=== PATIENT | male | born 1960 | race American Indian/Alaskan Native ===

== ENCOUNTER → 2020-03-23 07:26 | Outpatient (CLI) | payer BC, SELFPAY ==
--- NOTE | ~2020-03-23 | US_ITS ---
EXAMINATION: US abdomen limited DATE: 03/23/2020 08:03 INDICATION: Right upper quadrant abdominal pain. TECHNIQUE: Multiple grayscale and Doppler ultrasound images of the abdomen were obtained. COMPARISON: None FINDINGS: Abdominal aorta is normal in caliber. The visualized portions of the head and body of the p ancreas are normal. There is diffuse hepatic steatosis with focal sparing in the gallbladder fossa. T here is normal flow in main portal vein. The gallbladder is normal in size. No gallstones or gallblad linda wall thickening. There was no sonographic Conway sign. The common duct is normal and measures 3 m m. Right kidney is normal. IMPRESSION: 1. Diffuse hepatic steatosis. Reviewed, dictated and finalized at location [facility]. [facility] THEATER MANAGER
== END ==
PROVIDERS: PCP Family Medicine; Visit Provider Family Medicine
DX: R10.11 Right upper quadrant pain (principal); K76.0 Fatty (change of) liver, not elsewhere classified
CPT/HCPCS: 76705

== ENCOUNTER 2020-06-18 13:16 | Outpatient (CLI) | payer OTHER, SELFPAY | END 2020-06-18 13:17 | disposition home or self-care (01) | LOC: ANHCOVIDVC 13:16 | PROVIDERS: PCP Family Medicine | DX: Z23 Encounter for immunization (principal) | CPT/HCPCS: 0001A; 91300 ==

== ENCOUNTER 2020-07-09 13:11 | Outpatient (CLI) | payer OTHER, SELFPAY | END 2020-07-09 13:12 | disposition home or self-care (01) | LOC: ANHCOVIDVC 13:11 | PROVIDERS: PCP Family Medicine | DX: Z23 Encounter for immunization (principal) | CPT/HCPCS: 0002A; 91300 ==

== ENCOUNTER 2023-01-09 06:58 | Outpatient (CLI) | payer OTHER, SELFPAY ==
[2023-01-09 07:22] LABS: Alanine Aminotransferase 28 U/L (6-50); Albumin Level 4.5 g/dL (3.5-5.1); Alkaline Phosphatase 81 U/L (38-126); Anion Gap 5 mmol/L (8-16); Aspartate Amino Transferase 34 U/L (17-59); Bilirubin,Total 0.4 mg/dL (0.2-1.3); Blood Urea Nitrogen 14 mg/dL (9-20); Calcium 9.1 mg/dL (8.4-10.2); Carbon Dioxide 31 mmol/L (22-30); Chloride 101 mmol/L (98-107); Cholesterol 123 mg/dL (0-200); Estimated Glomerular Filt Rate > 60; Glucose 125 mg/dL (65-110); HDL Direct 40 mg/dL; Potassium 4.3 mmol/L (3.4-5.0); Sodium 137 mmol/L (137-145); Triglycerides 58 mg/dL (<150)
[2023-01-09 07:33] LABS: Hemoglobin A1C 6.2 % (<5.7); LDL Cholesterol Direct 68 mg/dL
== END 2023-01-09 06:59 | disposition home or self-care (01) ==
PROVIDERS: PCP Family Medicine; Visit Provider Family Medicine
DX: E11.9 Type 2 diabetes mellitus without complications (principal); E78.2 Mixed hyperlipidemia; I10 Essential (primary) hypertension
CPT/HCPCS: 36415; 80053; 80061; 83036

== ENCOUNTER 2023-04-19 13:54 | Outpatient (CLI) | payer OTHER, SELFPAY ==
--- NOTE | ~2023-04-19 | XR_ITS ---
Clinical Indication: Shortness of breath PA and lateral views of the chest: Comparison: None Findings: The lungs are clear, without evidence of focal consolidation or pleural effusion. Cardiome diastinal silhouette is within normal limits. Bones and soft tissues are unremarkable. Impression: Normal chest. Reviewed, dictated and finalized at [facility]. [facility] Impression: Normal chest.
== END 2023-04-19 13:55 | disposition home or self-care (01) ==
PROVIDERS: PCP Family Medicine; Visit Provider Physician Assistant
DX: R06.02 Shortness of breath (principal)
CPT/HCPCS: 71046

== ENCOUNTER 2023-10-23 07:36 | Outpatient (CLI) | payer OTHER, SELFPAY ==
[2023-10-23 08:20] LABS: Alanine Aminotransferase 49 U/L (6-50); Albumin Level 4.7 g/dL (3.5-5.1); Alkaline Phosphatase 78 U/L (38-126); Anion Gap 11 mmol/L (4-12); Aspartate Amino Transferase 44 U/L (17-59); Bilirubin,Total 0.5 mg/dL (0.2-1.3); Blood Urea Nitrogen 13 mg/dL (9-20); Calcium 9.1 mg/dL (8.4-10.2); Carbon Dioxide 30 mmol/L (22-30); Chloride 98 mmol/L (98-107); Cholesterol 129 mg/dL (0-200); Estimated Glomerular Filt Rate > 60; Glucose 123 mg/dL (65-110); HDL Direct 39 mg/dL; Sodium 139 mmol/L (137-145); Triglycerides 105 mg/dL (<150)
[2023-10-23 08:31] LABS: LDL Cholesterol Direct 79 mg/dL
[2023-10-23 08:49] LABS: Prostate Specific Antigen 0.7 ng/mL (< OR = 4.0)
[2023-10-23 09:05] LABS: Creatinine Urine 165.9 mg/dL
[2023-10-23 09:10] LABS: MALB Creatinine Ratio 11.3 mg/g (0-30); Microalbumin Urine Random 18.8 mg/L (0-16.7)
[2023-10-23 10:37] LABS: Hemoglobin A1C 7.1 % (<5.7)
== END 2023-10-23 07:37 | disposition home or self-care (01) ==
LOC: ANHLAB 07:37
PROVIDERS: PCP Family Medicine; Visit Provider Student in an Organized Health Care Education/Training Program
DX: E11.9 Type 2 diabetes mellitus without complications (principal); E78.2 Mixed hyperlipidemia; I10 Essential (primary) hypertension; Z12.5 Encounter for screening for malignant neoplasm of prostate
CPT/HCPCS: 36415; 80053; 80061; 82043; 83036; 84153; G0103

== ENCOUNTER 2024-05-13 06:43 | Outpatient (CLI) | payer OTHER, SELFPAY ==
--- OUTSIDE RECORDS SUMMARY | 2024-05-13 06:47 | XMS_ITS | Clinical Summary ---
Author Organization [facility] Address [address] [place] [address] Care Team Providers Care Plate Molder Name Role Phone Natalia Salazar MD Primary Care Provider + Source Comments [facility],non-owned Affiliates and Associated Physician Practices is amultiple site organization consisting of ambulatory clinics and hospital sitesin [place], [place], [place] and [place]. This disclosure is being madepursuant to the Care Everywhere program and may not contain all information available regarding this patient. Last updated 17.[facility] [employer] Social History Tobacco Use Types Packs/Day Years Used Date Smoking Tobacco: Never Assessed Sex and Gender Information Value Date Recorded Sex Assigned at Not on file Gender Identity Not on file Sexual Orientation Not on file Plan of Treatment Health Maintenance Due Date Last Done Comments COLOGUARD (AGES 45-75) - COL ON CA SCREENING 1961 COLON MONITORING 1961 COLONOSCOPY - COLON CA SCREENING 1961 CT COLONOGRAPHY - COLON CA SCREENING 1961 Colorectal Cancer Screening 1961 FIT - COLON CA SCREENING 1961 FLEX SIG - COLON CA SCREENING 1961 LIPID TESTING 1961 HIV SCREENING 02/08/1976 HEPATITIS C SCREENING 02/03/1979 DTAP/TDAP/TD VACCINES (1 - Tdap) 02/08/1980 PNEUMOCOCCAL VACCINE 50+ (1 of 1 - PCV) 2011 ZOSTER VACCINE (1 of 2) 2011 COVID-19 VACCINE ( - 2023-2 5 season) 2023 INFLUENZA VACCINE (#1) 2023 DEPRESSION SCREENING 04/05/2024 Respiratory Syncytial Virus (RSV) Vaccine Pt: or over 60 yrs (1 - 1-dose 75+ series) 02/08/2036 HEPATITIS B VACCINE Aged Out No longe r eligible based on patient's age to complete this topic HIB VACCINE Aged Out No longer eligi ble based on patient's age to complete this topic HPV VACCINE Aged Out No longer eligi ble based on patient's age to complete this topic MENINGOCOCCAL (Group B) VACCINE Aged Out No longer eligible based on patient's age to complete this topic MENINGOCOCCAL VACCINE Aged Out No nisha godfrey eligible based on patient's age to complete this topic PNEUMOCOCCAL VACCINE Aged Out No long er eligible based on patient's age to complete this topic Care Teams Plate Molder Relationship Specialty Start Date End Date Natalia Salazar MD [address] [place] [address] PCP - General 07/07/18
--- OUTSIDE RECORDS SUMMARY | 2024-05-13 06:47 | XMS_ITS | Patient Health Summary ---
Author Organization [facility] Address [address] [place] [address] Care Team Providers Care Tool Repairer Name Role Phone Natalia Salazar MD Primary Care Provider + Note from [facility],non-owned Affiliates and Associated Physician Practices is amultiple site organization consisting of ambulatory clinics and hospital sitesin [place], [place], [place] and [place]. This disclosure is being madepursuant to the Care Everywhere program and may not contain all information available regarding this patient. Last updated 17.[facility] Social History Tobacco Use Types Packs/Day Years Used Date Smoking Tobacco: Never Assessed Sex and Gender Information Value Date Recorded Sex Assigned at Not on file Gender Identity Not on file Sexual Orientation Not on file Procedures * DERMATOPATHOLOGY(Performed 01/02/2022) Results * DERMATOPATHOLOGY (01/02/2022 12:00 AM CDT) Case Report Dermatopathology Report Case: [id number] Authorizing Provider: Luis Ppo MD Collected: 01/02/2022 12:00 AM Ordering Location: [facility] DermPath Lab Received: 01/05/2022 04:53 PM Pathologist: Natali Deleon MD Specimen: Skin, left shoulder 12:47 PM CDT DERMATOPATHOLOGY LABORATORY Final Diagnosis Specimen A. SKIN, left shoulder: HEMANGIOMA (D18.01) 12:47 PM CDT DERMATOPATHOLOGY LABORATORY Clinical History PG vs. Angioma vs. MM. Path# [id number] 12:47 PM CDT DERMATOPATHOLOGY LABORATORY Gross Description Specimen A: Received is one formalin filled container labeled with the patient's name and designated left shoulder. The specimen consists of a shave biopsy measuring [id number]. Jar 0. 12:47 PM CDT DERMATOPATHOLOGY LABORATORY Microscopic Description Specimen A. SKIN, left shoulder: In the dermis, there are dilated vascular spaces surrounded by widely spaced endothelial cells. 12:47 PM CDT DERMATOPATHOLOGY LABORATORY Disclaimer An external and internal positive and negative controls are appropriate for the histochemical, immunohistochemical and immunofluorescence stain(s) in this case (if any), except where stated explicitly. The performance characteristics of the stain(s) cited in this report were developed and its performance characteristic determined by the Dermatopathology Laboratory at [facility], directed by Dr. Florian Lambert. These tests need not be, and therefore are not, approved by the [place] Food and Drug Administration. The tests are used for clinical purposes. Billing Codes Specimen Charges Stain Charges 10473 1 12:47 PM CDT DERMATOPATHOLOGY LABORATORY Embedded Images 12:47 PM CDT DERMATOPATHOLOGY LABORATORY Pathology/Cytolog y TISSUE SPECIMEN FROM SKIN / Unknown 01/02/2022 01/05/2022 4:53 PM CDT Luis Pop MD LAB - PATHOLOGY/CYTO LOGY ORDERABLES DERMATOPATHOLOGY LABORATORY [facility] - Department of Dermatology [facility] [address] [place] [address], [address] [phone] Care Teams Tool Repairer Relationship Specialty Start Date End Date Natalia Salazar MD [address] [place] [address] PCP - General 07/07/18
--- OUTSIDE RECORDS SUMMARY | 2024-05-13 06:47 | XMS_ITS | Referral Summary ---
Author Organization [facility] Address [address] [place] [address] Care Team Providers Care Avionics Safety Inspector Name Role Phone Natalia Salazar MD Primary Care Provider + Source Comments [facility],non-[facility] Affiliates and Associated Physician Practices is amultiple site organization consisting of ambulatory clinics and hospital sitesin [place], [place], [place] and [place]. This disclosure is being madepursuant to the Care Everywhere program and may not contain all information available regarding this patient. Last updated 17.[facility] Social History Tobacco Use Types Packs/Day Years Used Date Smoking Tobacco: Never Assessed Sex and Gender Information Value Date Recorded Sex Assigned at Not on file Gender Identity Not on file Sexual Orientation Not on file Plan of Treatment Not on file Care Teams Avionics Safety Inspector Relationship Specialty Start Date End Date Natalia Salazar MD [address] [place] [address] PCP - General 07/07/18
--- OUTSIDE RECORDS SUMMARY | 2024-05-13 06:47 | XMS_ITS | Encounter Summary ---
Author Organization [facility] Address [address] [place] [address] Care Team Providers Care Rental Sales Representative Name Role Phone Natalia Salazar MD Primary Care Provider + Encounter Details Date Type Department Care Team (Late st Contact Info) Description 01/05/2022 Lab Requisition [facility] DermPath Lab [address] [place] [id number] Luis Pop MD [address] [place] [address] Social History Tobacco Use Types Packs/Day Years Used Date Smoking Tobacco: Never Assessed Sex and Gender Information Value Date Recorded Sex Assigned at Not on file Gender Identity Not on file Sexual Orientation Not on file documented as of this encounter Plan of Treatment Not on file documented as of this encounter Procedures Procedure Name Priority Date/Time Associated Diagnosis Comments DERMATOPATHOLOGY Routine 01/02/2022 12:0 0 AM CDT documented in this encounter Results * DERMATOPATHOLOGY (01/02/2022 12:00 AM CDT) Case Report Dermatopathology Report Case: [id number] Authorizing Provider: Luis Pop MD Collected: 01/02/2022 12:00 AM Ordering Location: [facility] DermPath Lab Received: 01/05/2022 04:53 PM Pathologist: Natali Deleon MD Specimen: Skin, left shoulder 2 12:47 PM CDT DERMATOPATHOLOGY LABORATORY Final Diagnosis Specimen A. SKIN, left shoulder: HEMANGIOMA (D18.01) 2 12:47 PM CDT DERMATOPATHOLOGY LABORATORY Clinical History PG vs. Angioma vs. MM. Path# [id number] 12:47 PM CDT DERMATOPATHOLOGY LABORATORY Gross Description Specimen A: Received is one formalin filled container labeled with the patient's name and designated left shoulder. The specimen consists of a shave biopsy measuring [id number]. Jar 0. 12:47 PM CDT DERMATOPATHOLOGY LABORATORY [...] characteristic determined by the Dermatopathology Laboratory at [facility], directed by Dr. Florian Lambert. These tests need not be, and therefore are not, approved by the [place] Food and Drug Administration. The tests are used for clinical purposes. Billing Codes Specimen Charges Stain Charges 30552 1 2 12:47 PM CDT DERMATOPATHOLOGY LABORATORY Embedded Images 12:47 PM CDT DERMATOPATHOLOGY LABORATORY Pathology/Cytolog y TISSUE SPECIMEN FROM SKIN / Unknown 01/02/2022 01/05/2022 4:53 PM CDT Luis Pop MD LAB - PATHOLOGY/CYTO LOGY ORDERABLES DERMATOPATHOLOGY LABORATORY [facility] - Department of Dermatology [facility] [address] [place] [address], [address] [phone] documented in this encounter Visit Diagnoses Not on filedocumented in this encounter Care Teams Rental Sales Representative Relationship Specialty Start Date End Date Natalia Salazar MD [address] [place] [address] PCP - General 07/07/18 documented as of this encounter
[2024-05-13 07:07] LABS: Hematocrit 45.8 % (42.0-52.0); Hemoglobin 15.7 g/dL (14.0-18.0); Mean Corpuscular HGB Conc 34.3 g/dl (32-36); Mean Corpuscular Hemoglobin 32.4 pg (26-34); Mean Corpuscular Volume 94.6 fl (80-100); Mean Platelet Volume 8.5 fl (7.4-10.4); Platelet Count Result 200 k/mm3 (150-375); Red Blood Count 4.84 M/mm3 (4.6-6.20); Red Cell Distribution Width 13.1 % (11.5-14.5); White Blood Count 6.7 K/mm3 (4.5-10.0)
[2024-05-13 07:16] LABS: Alanine Aminotransferase 33 U/L (6-50); Albumin Level 4.3 g/dL (3.5-5.1); Alkaline Phosphatase 82 U/L (38-126); Anion Gap 10 mmol/L (4-12); Aspartate Amino Transferase 30 U/L (17-59); Bilirubin,Total 0.7 mg/dL (0.2-1.3); Blood Urea Nitrogen 12 mg/dL (9-20); Calcium 9.4 mg/dL (8.4-10.2); Carbon Dioxide 26 mmol/L (22-30); Chloride 103 mmol/L (98-107); Cholesterol 114 mg/dL (0-200); Estimated Glomerular Filt Rate > 60; Glucose 119 mg/dL (65-110); HDL Direct 39 mg/dL; Potassium 4.2 mmol/L (3.4-5.0); Sodium 139 mmol/L (137-145); Triglycerides 103 mg/dL (<150); Uric Acid 5.2 mg/dL (3.5-8.5)
[2024-05-13 07:26] LABS: LDL Cholesterol Direct 59 mg/dL
[2024-05-13 08:51] LABS: Hemoglobin A1C 7.2 % (<5.7)
[2024-05-13 08:59] LABS: Creatinine Urine 140.1 mg/dL
[2024-05-13 09:03] LABS: MALB Creatinine Ratio 12.6 mg/g (0-30); Microalbumin Urine Random 17.6 mg/L (0-16.7)
== END 2024-05-13 06:44 | disposition home or self-care (01) ==
LOC: ANHLAB 06:45
PROVIDERS: PCP Family Medicine; Visit Provider Physician Assistant
DX: E11.9 Type 2 diabetes mellitus without complications (principal); E78.2 Mixed hyperlipidemia; I10 Essential (primary) hypertension; M25.50 Pain in unspecified joint
CPT/HCPCS: 36415; 80053; 80061; 82043; 83036; 84550; 85027

== ENCOUNTER 2025-02-17 07:19 | Outpatient (CLI) | payer OTHER, SELFPAY ==
[2025-02-17 07:46] LABS: Hemoglobin A1C 6.8 % (<5.7)
[2025-02-17 08:01] LABS: Alanine Aminotransferase 31 U/L (6-50); Albumin Level 4.6 g/dL (3.5-5.1); Alkaline Phosphatase 77 U/L (38-126); Anion Gap 8 mmol/L (4-12); Aspartate Amino Transferase 36 U/L (17-59); Bilirubin,Total 0.6 mg/dL (0.2-1.3); Blood Urea Nitrogen 11 mg/dL (9-20); Calcium 9.4 mg/dL (8.4-10.2); Carbon Dioxide 28 mmol/L (22-30); Chloride 101 mmol/L (98-107); Estimated Glomerular Filt Rate > 60; Glucose 127 mg/dL (65-110); Potassium 4.2 mmol/L (3.4-5.0); Sodium 137 mmol/L (137-145); Total Protein 8.0 g/dL (6.3-8.2)
[2025-02-17 08:37] LABS: Prostate Specific Antigen 0.6 ng/mL (< OR = 4.0)
== END 2025-02-17 07:20 | disposition home or self-care (01) ==
LOC: ANHLAB 07:20
PROVIDERS: PCP Family Medicine; Visit Provider Physician Assistant Medical
DX: E11.9 Type 2 diabetes mellitus without complications (principal); I10 Essential (primary) hypertension; N40.0 Benign prostatic hyperplasia without lower urinary tract symptoms; E78.2 Mixed hyperlipidemia
CPT/HCPCS: 36415; 80053; 83036; 84153; G0103